=== PATIENT | female | born 1935 | race Caucasian/White ===

== ENCOUNTER 2018-05-31 19:58 | Emergency (ER) | payer OTHER ==
[2018-05-31] MEDS: ONDANSETRON 4 MG INJ IV (21:16)
[2018-05-31] MEDS: morphine 4 MG/ML VIAL IV (21:16)
[2018-05-31] MEDS: SODIUM CHLORIDE 0.9% 1L BAG IV* (21:22)
== END 2018-06-01 00:54 | disposition short-term general hospital (02) ==
LOC: E/R 06-01 00:54
DX: R41.82 Altered mental status, unspecified (principal); I10 Essential (primary) hypertension; Z51.5 Encounter for palliative care
CPT/HCPCS: 71045; 93005; 96374; 96375; 99285-25